=== PATIENT | female | born 1955 | race Caucasian/White ===

== ENCOUNTER → 2017-11-18 | Outpatient (CLI) | payer MEDICARE ==
[~2017-11-18] MED LIST: ALBU18HF7 IH; ASPI-1005 PO; ASPI-1012 PO; ATOR10TA69 PO; CALC-190 PO; CALC3.8S EN; CITA40TA6 PO; CLOP75TA14 PO; FOLIC ACID PO; HYDR-309 PO; L.AC1CAP6 PO; MULT-1203 PO; NITR0.4T SL; TRAM50TA4 PO; VIT B12 PO; VITAMIN B1 PO
== END | disposition home or self-care (01) ==
LOC: EDSTATUS 08:00 → SHCH 08:04
PROVIDERS: ATTEND Internal Medicine Cardiovascular Disease
DX: I73.9 Peripheral vascular disease, unspecified (principal); I70.8 Atherosclerosis of other arteries
CPT/HCPCS: 93925; 93978

== ENCOUNTER 2017-12-08 09:36 | Day surgery (SDC) | payer MEDICARE ==
[2017-12-06 12:50] VITALS: BP 140/58
[2017-12-06 13:06] LABS: BASOPHILS % (AUTO) 1.3 % (0.0-5.0); EOSINOPHILS % (AUTO) 1.1 % (0.0-8.0); LYMPHOCYTES % (AUTO) 33.1 % (21.0-51.0); MEAN CORPUSCULAR HGB CONC 33.5 g/dL (32.0-36.0); MEAN CORPUSCULAR VOLUME 89.6 fL (79-99); MONOCYTES % (AUTO) 10.3 % (3.0-13.0); NEUTROPHILS % (AUTO) 54.2 % (40.0-77.0); PLATELET COUNT (AUTO) 323 K/uL (130-400); RED BLOOD CELL COUNT(AUTO) 4.46 MIL/uL (4.00-5.50); RED CELL DISTRIBUTION WIDTH 13.9 % (11.0-15.5)
[2017-12-06 13:10] LABS: APPEARANCE,URINE Clear (CLEAR); BILIRUBIN,URINE Negative (NEGATIVE); COLOR,URINE Yellow (YELLOW); GLUCOSE, URINE (UA) Negative (NEGATIVE); KETONES,URINE Negative (NEGATIVE); LEUKOCYTE ESTERASE ,URINE Negative (NEGATIVE); NITRATE,URINE Negative (NEGATIVE); OCCULT BLOOD,URINE Trace (NEGATIVE); PROTEIN,URINE Negative (NEGATIVE); UROBILINOGEN,URINE 0.2 mg/dL (0.2-1.0)
[2017-12-06 13:20] LABS: CREATININE 0.7 mg/dL (0.5-1.5); POTASSIUM 4.5 mmol/L (3.5-5.1)
[2017-12-06 13:22] LABS: INR 1.01 (0.85-1.15); PARTIAL THROMBOPLASTIN TIME 28.1 SEC (26.3-35.5); PROTHROMBIN TIME 10.6 SEC (9.6-11.6)
[2017-12-06 14:01] LABS: BACTERIA,URINE Rare /HPF (None Seen); RBC,URINE 0-1 /HPF (0-1); SQUAMOUS EPITHELIAL CELL,UR Rare /HPF (0-2); WBC,URINE None Seen /HPF (0-1)
[2017-12-08] VITALS (13 sets, daily range): BP systolic 55–133; BP diastolic 55–67
[~2017-12-08] VITALS: Ht 165.1 cm; Wt 52.4 kg
[~2017-12-08 09:36] MED LIST changes: -ASPI-1012 PO; -HYDR-309 PO; +MONTELUKAST SODIUM 10 MG TAB PO ONE
[2017-12-08] MEDS ORDERED: MONTELUKAST SODIUM 10 MG TAB PO SCH (10:48)
[2017-12-08] MEDS ORDERED: SODIUM CHLORIDE 0.9% 1000ML 1,000 ML IV ONE (11:25)
[2017-12-08] MEDS ORDERED: METHYLPREDNISOLONE SOD SUCC 125MG/2ML VIAL IVP SCH (11:48)
[2017-12-08] MEDS ORDERED: ACETAMINOPHEN 325 MG TAB PO PRN (12:00)
[2017-12-08] MEDS ORDERED: SODIUM CHLORIDE 0.9% 500ML 500 ML IV SCH (12:00)
[2017-12-08] MEDS ORDERED: NITROGLYCERIN 5 MG/ML 10 ML VIAL IV ONE (13:39)
[2017-12-08] MEDS ORDERED: LIDOCAINE HCL 2% 20ML ONE (13:40)
[2017-12-08] MEDS ORDERED: HEPARIN SODIUM 1000UNIT/ML 10ML VIAL ONE (13:40)
[2017-12-08] MEDS ORDERED: ISOVUE-300 100 ML VIAL IV ONE (13:40)
[2017-12-08] MEDS ORDERED: MIDAZOLAM HCL 1 MG/ML 2ML VIAL ONE (14:04)
[2017-12-08] MEDS ORDERED: FENTANYL CITRATE PF 50 MCG/1 ML 2ML VIAL ONE (14:05)
[2017-12-08] MEDS ORDERED: SODIUM CHLORIDE 0.9% 1000ML 1,000 ML IV SCH (14:41)
[2017-12-08] MEDS ORDERED: GLUCAGON 1MG KIT 1 MG ML IM PRN (14:45)
[2017-12-08] MEDS ORDERED: DEXTROSE 50%-WATER 50 ML DISP.SYRIN IV PRN (14:45)
[2017-12-08] MEDS ORDERED: HYDRALAZINE HCL 20 MG/ML VIAL IV PRN (14:45)
[2017-12-08] MEDS ORDERED: ATROPINE SULFATE 0.1 MG/ML 10 ML SYG IVP ONE (14:48)
== END 2017-12-08 18:15 | disposition home or self-care (01) ==
LOC: DAH 09:36
PROVIDERS: ATTEND Internal Medicine Cardiovascular Disease
DX: I73.9 Peripheral vascular disease, unspecified (principal); E78.5 Hyperlipidemia, unspecified; Z98.890 Other specified postprocedural states; R00.0 Tachycardia, unspecified; J44.9 Chronic obstructive pulmonary disease, unspecified; Z87.891 Personal history of nicotine dependence; I20.9 Angina pectoris, unspecified; Z79.899 Other long term (current) drug therapy; Z79.01 Long term (current) use of anticoagulants
CPT/HCPCS: 36246; 36415; 71045; 75716; 80048; 81001; 85025; 85610; 85730; 93005; A4606; C1769; C1894 ×2; J1644; J2250; J2930; J3010; J3490 ×2; J7030; Q9967; 99152; 99153; J0461

== ENCOUNTER 2017-12-13 09:00 | Inpatient (IN) | payer MEDICARE ==
[~2017-12-13] VITALS: Ht 165.1 cm; Wt 53.8 kg
[~2017-12-13 09:00] MED LIST changes: -MONTELUKAST SODIUM 10 MG TAB PO ONE
[2017-12-14 11:42] VITALS: BP 104/54
[2017-12-14 11:42] LABS: BASOPHILS % (AUTO) 0.6 % (0.0-5.0); EOSINOPHILS % (AUTO) 1.4 % (0.0-8.0); LYMPHOCYTES % (AUTO) 28.3 % (21.0-51.0); MEAN CORPUSCULAR HEMOGLOBIN 30.3 pg (27.0-33.0); MEAN CORPUSCULAR HGB CONC 33.8 g/dL (32.0-36.0); MEAN CORPUSCULAR VOLUME 89.7 fL (79-99); MONOCYTES % (AUTO) 13.1 % (3.0-13.0); NEUTROPHILS % (AUTO) 56.6 % (40.0-77.0); PLATELET COUNT (AUTO) 303 K/uL (130-400); RED BLOOD CELL COUNT(AUTO) 4.12 MIL/uL (4.00-5.50); RED CELL DISTRIBUTION WIDTH 14.4 % (11.0-15.5); WHITE BLOOD COUNT (AUTO) 12.6 K/uL (4.8-10.8)
[2017-12-14 11:48] LABS: CREATININE 0.6 mg/dL (0.5-1.5); POTASSIUM 3.8 mmol/L (3.5-5.1)
[2017-12-14 11:49] LABS: HEMOGLOBIN A1C 6.9 % (4.0-6.0)
[2017-12-14 12:16] LABS: INR 0.97 (0.85-1.15); PARTIAL THROMBOPLASTIN TIME 26.4 SEC (26.3-35.5)
[2017-12-14 12:31] LABS: PLATELET FUNCTION ANALYSIS EPI 95 SEC (55-192)
[2017-12-14 12:33] LABS: PLATELET COUNT (AUTO) 303 K/uL (130-400)
[2017-12-15] VITALS (20 sets, daily range): BP systolic 97–140; BP diastolic 60–72
[2017-12-15] MEDS ORDERED: WATER FOR INJECTION,STERILE 20 ML VIAL IJ SCH (05:00)
[2017-12-15] MEDS: CEFUROXIME SODIUM 1.5 GM VIAL IVP SCH ×2 (14:00→15:00)
[2017-12-15] MEDS ORDERED: LACTATED RINGERS 1000ML 1,000 ML IV ONE (14:08)
[2017-12-15] MEDS ORDERED: OCTYL 2-CYANOACRYLATE 1 EACH TP ONE (14:16)
[2017-12-15] MEDS ORDERED: BACITRACIN 50,000 UNIT VIAL ONE (14:17)
[2017-12-15] MEDS ORDERED: NEOMY SULF/POLYMYXIN B SULFATE 1 ML AMPUL IR ONE (14:17)
[2017-12-15] MEDS ORDERED: MIDAZOLAM HCL 1 MG/ML 2ML VIAL ONE (15:03)
[2017-12-15] MEDS ORDERED: FENTANYL CITRATE PF 50 MCG/1 ML 2ML VIAL ONE (15:03)
[2017-12-15] MEDS ORDERED: THROMBIN-JMI 5000 UNIT/VIAL TP ONE (15:24)
[2017-12-15] MEDS ORDERED: NEOSTIGMINE METHYLSULFATE 1MG/ML IV ONE (16:49)
[2017-12-15] MEDS ORDERED: ACETAMINOPHEN 325 MG TAB PO PRN (17:30)
[2017-12-15] MEDS ORDERED: MAGNESIUM HYDROXIDE 30 ML/UDCUP PO PRN (17:30)
[2017-12-15] MEDS: ENOXAPARIN SODIUM 40 MG/0.4 ML SYRINGE SQ SCH (20:37)
[2017-12-15] MEDS: HYDROCODONE/ACETAMINOPHEN 5/325 MG TAB PO PRN (20:49)
[2017-12-15] MEDS: TRAMADOL HCL 50 MG TABLET PO PRN (23:05)
[2017-12-16] MEDS: CEFUROXIME SODIUM 1.5 GM VIAL IVP SCH ×2 (01:16→14:28)
[2017-12-16] MEDS ORDERED: CEFUROXIME 1.5GM+NS 100ML 100 ML IV SCH (01:30)
[2017-12-16] MEDS: HYDROCODONE/ACETAMINOPHEN 5/325 MG TAB PO PRN ×3 (02:08→20:39)
[2017-12-16 03:13] VITALS: BP 106/58
[2017-12-16 04:50] LABS: ALBUMIN 2.6 g/dL (3.5-5.0); BILIRUBIN,TOTAL 0.5 mg/dL (0.2-1.0); CREATININE 0.5 mg/dL (0.5-1.5); POTASSIUM 3.5 mmol/L (3.5-5.1); TOTAL PROTEIN, SERUM 6.1 g/dL (6.0-8.3)
[2017-12-16 08:00] VITALS: BP 95/52
[2017-12-16] MEDS: CLOPIDOGREL BISULFATE 75 MG TAB PO SCH (08:24)
[2017-12-16] MEDS: FAMOTIDINE 20MG TAB 20 MG TAB PO SCH ×2 (08:24→20:38)
[2017-12-16] MEDS ORDERED: VIT B12 PO SCH (09:00)
[2017-12-16] MEDS ORDERED: CALCITONIN 3.7 ML AEROSOL NS SCH (09:00)
[2017-12-16] MEDS ORDERED: POTASSIUM CHLORIDE 10% ELIXIR 20 MEQ/15 ML UDCUP PO PRN (09:45)
[2017-12-16] MEDS ORDERED: POTASSIUM CHLORIDE 20MEQ/100ML 100 ML IV PRN (09:45)
[2017-12-16] MEDS ORDERED: LIDOCAINE HCL-MPF 1% 2ML VIAL IVP PRN (09:45)
[2017-12-16] MEDS: POTASSIUM CHLORIDE 20 MEQ ERTAB PO PRN ×2 (10:00→12:00)
[2017-12-16] MEDS: LACTOBACILLUS RHAMNOSUS GG 1 EACH CAP.SPRINK PO SCH (10:06)
[2017-12-16] MEDS: CITALOPRAM 20 MG TABLET PO SCH (10:06)
[2017-12-16] MEDS: MULTIVITAMIN TABLET PO SCH (10:06)
[2017-12-16] MEDS: ASPIRIN 81MG TAB.CHEW PO SCH (10:06)
[2017-12-16] MEDS: ATORVASTATIN CALCIUM 10 MG TABLET PO SCH (10:06)
[2017-12-16] MEDS: FOLIC ACID 1 MG TABLET PO SCH (10:06)
[2017-12-16] MEDS: CALCIUM 600 + VITAMIN D 400 TABLET PO SCH (10:06)
[2017-12-16] MEDS: TRAMADOL HCL 50 MG TABLET PO PRN (10:44)
[2017-12-16 11:22] VITALS: BP 135/73
[2017-12-16] MEDS: ENOXAPARIN SODIUM 40 MG/0.4 ML SYRINGE SQ SCH (15:53)
[2017-12-16 16:00] VITALS: BP 94/49
[2017-12-16 19:20] VITALS: BP 105/58
[2017-12-16 23:32] VITALS: BP 97/53
[2017-12-17] MEDS: TRAMADOL HCL 50 MG TABLET PO PRN (00:56)
[2017-12-17] MEDS: CEFUROXIME SODIUM 1.5 GM VIAL IVP SCH (02:28)
[2017-12-17 04:10] VITALS: BP 97/51
[2017-12-17] MEDS: HYDROCODONE/ACETAMINOPHEN 5/325 MG TAB PO PRN (04:49)
[2017-12-17 05:23] LABS: HEMATOCRIT 31.7 % (36-48); MEAN CORPUSCULAR HEMOGLOBIN 31.4 pg (27.0-33.0); MEAN CORPUSCULAR HGB CONC 35.5 g/dL (32.0-36.0); MEAN CORPUSCULAR VOLUME 88.5 fL (79-99); PLATELET COUNT (AUTO) 229 K/uL (130-400); RED BLOOD CELL COUNT(AUTO) 3.58 MIL/uL (4.00-5.50); RED CELL DISTRIBUTION WIDTH 14.2 % (11.0-15.5); WHITE BLOOD COUNT (AUTO) 14.6 K/uL (4.8-10.8)
[2017-12-17 05:30] LABS: CREATININE 0.6 mg/dL (0.5-1.5)
[2017-12-17] MEDS ORDERED: POTASSIUM CHLORIDE 10 MEQ/TAB.SA PO ONE ×4 (05:41→07:00)
[2017-12-17 07:13] VITALS: BP 92/46
[2017-12-17] MEDS ORDERED: TRAM50TA4 PO (08:19)
[2017-12-17] MEDS: ATORVASTATIN CALCIUM 10 MG TABLET PO SCH (09:15)
[2017-12-17] MEDS: CALCIUM 600 + VITAMIN D 400 TABLET PO SCH (09:15)
[2017-12-17] MEDS: LACTOBACILLUS RHAMNOSUS GG 1 EACH CAP.SPRINK PO SCH (09:15)
[2017-12-17] MEDS: MULTIVITAMIN TABLET PO SCH (09:15)
[2017-12-17] MEDS: ASPIRIN 81MG TAB.CHEW PO SCH (09:15)
[2017-12-17] MEDS: FOLIC ACID 1 MG TABLET PO SCH (09:15)
[2017-12-17] MEDS: CLOPIDOGREL BISULFATE 75 MG TAB PO SCH (09:16)
[2017-12-17] MEDS: CITALOPRAM 20 MG TABLET PO SCH (09:16)
[2017-12-17] MEDS: FAMOTIDINE 20MG TAB 20 MG TAB PO SCH (09:16)
[2017-12-17 11:35] VITALS: BP 97/53
[2017-12-17 14:28] LABS: APPEARANCE,URINE Clear (CLEAR); BILIRUBIN,URINE Negative (NEGATIVE); COLOR,URINE Yellow (YELLOW); GLUCOSE, URINE (UA) Negative (NEGATIVE); KETONES,URINE Negative (NEGATIVE); LEUKOCYTE ESTERASE ,URINE Negative (NEGATIVE); NITRATE,URINE Negative (NEGATIVE); OCCULT BLOOD,URINE Negative (NEGATIVE); PH,URINE 5.5 (5.0-8.0); PROTEIN,URINE Negative (NEGATIVE); UROBILINOGEN,URINE 0.2 mg/dL (0.2-1.0)
== END 2017-12-17 16:44 | disposition home or self-care (01) | DRG 253 ==
LOC: 2DH 12-15 01:00 → UNDOADMIN 12-15 01:00 → DAHIP 12-15 01:00 → 2DH 12-15 17:16 → DAHIP 12-15 17:16
PROVIDERS: ADMIT Internal Medicine; ATTEND Internal Medicine
PROC: 04UL0JZ Supplement Left Femoral Artery with Synthetic Substitute, Open Approach (ICD-10-PCS; 2017-12-15)
PROC: 30233N1 Transfusion of Nonautologous Red Blood Cells into Peripheral Vein, Percutaneous Approach (ICD-10-PCS; 2017-12-15)
PROC: 04CK0ZZ Extirpation of Matter from Right Femoral Artery, Open Approach (ICD-10-PCS; principal; 2017-12-15 15:00)
DX: I73.9 Peripheral vascular disease, unspecified (principal); E44.1 Mild protein-calorie malnutrition; E78.5 Hyperlipidemia, unspecified; F17.210 Nicotine dependence, cigarettes, uncomplicated; J44.9 Chronic obstructive pulmonary disease, unspecified; Z91.041 Radiographic dye allergy status; Z79.02 Long term (current) use of antithrombotics/antiplatelets; Z79.82 Long term (current) use of aspirin; Z82.49 Family history of ischemic heart disease and other diseases of the circulatory system
CPT/HCPCS: 36415; 71046; 80048; 80053; 81003; 83036; 85025; 85027; 85576; 85610; 85730; 86850; 86900; 86901; 86922; 88304; 93005; 94010; A4218; A4344; C1757; J0697; J1650; J2250; J2710; J3010; J3490; J7030; J7040; J7120; P9016

== ENCOUNTER 2018-01-31 16:00 | Inpatient (IN) | payer MEDICARE ==
[~2018-01-31] VITALS: Ht 165.1 cm; Wt 53.1 kg
[2018-01-31 15:29] LABS: APPEARANCE,URINE Clear (CLEAR); BILIRUBIN,URINE Negative (NEGATIVE); COLOR,URINE Yellow (YELLOW); GLUCOSE, URINE (UA) Negative (NEGATIVE); KETONES,URINE Negative (NEGATIVE); LEUKOCYTE ESTERASE ,URINE Negative (NEGATIVE); NITRATE,URINE Negative (NEGATIVE); OCCULT BLOOD,URINE Negative (NEGATIVE); PROTEIN,URINE Negative (NEGATIVE); UROBILINOGEN,URINE 0.2 mg/dL (0.2-1.0)
[2018-01-31 15:31] LABS: BASOPHILS % (AUTO) 1.1 % (0.0-5.0); EOSINOPHILS % (AUTO) 3.8 % (0.0-8.0); HEMATOCRIT 36.2 % (36-48); LYMPHOCYTES % (AUTO) 39.3 % (21.0-51.0); MEAN CORPUSCULAR HEMOGLOBIN 28.3 pg (27.0-33.0); MEAN CORPUSCULAR HGB CONC 33.3 g/dL (32.0-36.0); MEAN CORPUSCULAR VOLUME 85.1 fL (79-99); MONOCYTES % (AUTO) 9.6 % (3.0-13.0); NEUTROPHILS % (AUTO) 46.2 % (40.0-77.0); PLATELET COUNT (AUTO) 380 K/uL (130-400); RED BLOOD CELL COUNT(AUTO) 4.26 MIL/uL (4.00-5.50); WHITE BLOOD COUNT (AUTO) 9.6 K/uL (4.8-10.8)
[2018-01-31 15:38] LABS: CREATININE 0.6 mg/dL (0.5-1.5); POTASSIUM 4.6 mmol/L (3.5-5.1)
[2018-01-31 15:42] LABS: INR 0.99 (0.85-1.15); PARTIAL THROMBOPLASTIN TIME 27.5 SEC (26.3-35.5); PROTHROMBIN TIME 10.4 SEC (9.6-11.6)
[2018-01-31 16:03] VITALS: BP 92/54
[2018-02-01] VITALS (23 sets, daily range): BP systolic 92–136; BP diastolic 55–81
[2018-02-01] MEDS: CEFAZOLIN SODIUM 1 GM VIAL IVP SCH ×3 (06:00→18:03)
[2018-02-01] MEDS ORDERED: LACTATED RINGERS 1000ML 1,000 ML IV ONE (08:02)
[2018-02-01] MEDS ORDERED: CELECOXIB 200 MG CAP ONE (08:20)
[2018-02-01] MEDS ORDERED: ACETAMINOPHEN EXTRA STRENGTH 500 MG TABLET ONE (08:20)
[2018-02-01] MEDS ORDERED: KETOROLAC TROMETHAMINE 15MG/ML ONE (08:20)
[2018-02-01] MEDS ORDERED: OXYCODONE HCL 10 MG TAB.SR.12H PO ONE (08:20)
[2018-02-01] MEDS ORDERED: ONDANSETRON HCL 4 MG/2 ML VIAL ONE (08:47)
[2018-02-01] MEDS ORDERED: LIDOCAINE PF 2% 5ML ABBOJECT ONE (08:47)
[2018-02-01] MEDS ORDERED: DEXAMETHASONE SOD PHOSPHATE 10MG/ML 1ML VIAL ONE (08:47)
[2018-02-01] MEDS ORDERED: GLYCOPYRROLATE 0.2 MG/ML 5 ML VIAL ONE (08:47)
[2018-02-01] MEDS ORDERED: FENTANYL CITRATE PF 50 MCG/1 ML 2ML VIAL ONE (08:48)
[2018-02-01] MEDS ORDERED: MIDAZOLAM HCL 1 MG/ML 2ML VIAL ONE (08:48)
[2018-02-01] MEDS ORDERED: PROPOFOL 10 MG/ML 20ML VIAL IV ONE (08:48)
[2018-02-01] MEDS ORDERED: ROPIVACAINE 0.5% 5MG/ML 30ML IJ ONE (08:55)
[2018-02-01] MEDS ORDERED: BUPIVACAINE/PF 0.25% 30ML VIAL IJ ONE (08:57)
[2018-02-01] MEDS ORDERED: CEFAZOLIN SODIUM 1 GM VIAL ONE (08:57)
[2018-02-01] MEDS ORDERED: EPINEPHRINE 1 MG/ML AMPULE ONE (08:57)
[2018-02-01] MEDS ORDERED: POTASSIUM CHLORIDE 20 MEQ ERTAB PO PRN (12:00)
[2018-02-01] MEDS ORDERED: POTASSIUM CHLORIDE 10% ELIXIR 20 MEQ/15 ML UDCUP PO PRN (12:00)
[2018-02-01] MEDS ORDERED: DiphenhydrAMINE HCL 50 MG/ML VIAL IVP PRN (12:00)
[2018-02-01] MEDS ORDERED: CALCIUM CARBONATE 500 MG TABLET PO PRN (12:00)
[2018-02-01] MEDS ORDERED: OXYCODONE HCL 5 MG TAB PO PRN (12:00)
[2018-02-01] MEDS ORDERED: LIDOCAINE HCL-MPF 1% 2ML VIAL IVP PRN (12:00)
[2018-02-01] MEDS ORDERED: FERROUS FUMARATE 324 MG TABLET PO PRN (12:00)
[2018-02-01] MEDS ORDERED: POTASSIUM CHLORIDE 20MEQ/100ML 100 ML IV PRN (12:00)
[2018-02-01] MEDS ORDERED: ONDANSETRON HCL MDV 20ML 2 MG/ML VIAL IVP PRN (12:00)
[2018-02-01] MEDS ORDERED: TEMAZEPAM 15 MG CAPSULE PO PRN (12:00)
[2018-02-01] MEDS ORDERED: TRAMADOL HCL 50 MG TABLET PO PRN ×2 (12:00→18:00)
[2018-02-01] MEDS: ACETAMINOPHEN EXTRA STRENGTH 500 MG TABLET PO SCH ×2 (12:00→20:28)
[2018-02-01] MEDS ORDERED: MEPERIDINE-PF 50 MG/ML SYG ONE ×2 (12:44→13:01)
[2018-02-01] MEDS: SODIUM CHLORIDE 0.9% 1000ML 1,000 ML IV SCH ×2 (14:18→22:16)
[2018-02-01] MEDS: KETOROLAC TROMETHAMINE 15MG/ML IV PRN ×2 (14:18→20:33)
[2018-02-01] MEDS ORDERED: CEFAZOLIN 2GM / 50 ML 50 ML IV SCH (17:00)
[2018-02-01] MEDS ORDERED: NITROGLYCERIN 0.4 MG SL TAB SL SCH (18:00)
[2018-02-01] MEDS: OXYCODONE HCL 5 MG TAB PO PRN (18:04)
[2018-02-01] MEDS ORDERED: ALBUTEROL SULFATE 0.083% 2.5 MG/3 ML INH IH PRN (18:15)
[2018-02-01] MEDS: ASPIRIN 325 MG TABLET PO SCH (20:26)
[2018-02-01] MEDS: PREGABALIN 25 MG CAP PO SCH (20:27)
[2018-02-01] MEDS: CELECOXIB 200 MG CAP PO SCH (20:27)
[2018-02-01] MEDS: FAMOTIDINE 20MG TAB 20 MG TAB PO SCH (20:27)
[2018-02-02 00:06] VITALS: BP 95/58
[2018-02-02] MEDS: CEFAZOLIN SODIUM 1 GM VIAL IVP SCH (00:17)
[2018-02-02] MEDS: OXYCODONE HCL 5 MG TAB PO PRN ×5 (00:19→23:49)
[2018-02-02] MEDS: SODIUM CHLORIDE 0.9% 1000ML 1,000 ML IV SCH (03:51)
[2018-02-02 04:06] VITALS: BP 95/56
[2018-02-02] MEDS: ACETAMINOPHEN EXTRA STRENGTH 500 MG TABLET PO SCH ×3 (04:17→21:05)
[2018-02-02 05:28] LABS: HEMATOCRIT 25.6 % (36-48); MEAN CORPUSCULAR HEMOGLOBIN 28.6 pg (27.0-33.0); MEAN CORPUSCULAR HGB CONC 33.8 g/dL (32.0-36.0); MEAN CORPUSCULAR VOLUME 84.8 fL (79-99); PLATELET COUNT (AUTO) 254 K/uL (130-400); RED BLOOD CELL COUNT(AUTO) 3.02 MIL/uL (4.00-5.50); RED CELL DISTRIBUTION WIDTH 15.3 % (11.0-15.5); WHITE BLOOD COUNT (AUTO) 10.9 K/uL (4.8-10.8)
[2018-02-02 05:48] LABS: CREATININE 0.7 mg/dL (0.5-1.5); POTASSIUM 3.7 mmol/L (3.5-5.1)
[2018-02-02 07:29] VITALS: BP 90/58
[2018-02-02] MEDS: CALCITONIN 3.7 ML AEROSOL NS SCH (08:48)
[2018-02-02] MEDS: ASPIRIN 325 MG TABLET PO SCH ×2 (08:49→21:05)
[2018-02-02] MEDS: PREGABALIN 25 MG CAP PO SCH ×2 (08:49→21:05)
[2018-02-02] MEDS: POLYETHYLENE GLYCOL 3350 17 GM POWD.PACK PO SCH (08:49)
[2018-02-02] MEDS: ATORVASTATIN CALCIUM 10 MG TABLET PO SCH (08:50)
[2018-02-02] MEDS: CALCIUM 600 + VITAMIN D 400 TABLET PO SCH (08:50)
[2018-02-02] MEDS: CLOPIDOGREL BISULFATE 75 MG TAB PO SCH (08:50)
[2018-02-02] MEDS: CELECOXIB 200 MG CAP PO SCH ×2 (08:50→21:05)
[2018-02-02] MEDS: CITALOPRAM 20 MG TABLET PO SCH (08:50)
[2018-02-02] MEDS: FAMOTIDINE 20MG TAB 20 MG TAB PO SCH ×2 (08:50→21:05)
[2018-02-02 16:17] VITALS: BP 98/55
[2018-02-02 20:03] VITALS: BP 92/54
[2018-02-02] MEDS: KETOROLAC TROMETHAMINE 15MG/ML IV PRN (21:04)
[2018-02-03 00:03] VITALS: BP 100/52
[2018-02-03 04:03] VITALS: BP 107/63
[2018-02-03] MEDS: ACETAMINOPHEN EXTRA STRENGTH 500 MG TABLET PO SCH ×2 (04:25→12:52)
[2018-02-03] MEDS: OXYCODONE HCL 5 MG TAB PO PRN ×3 (04:27→12:54)
[2018-02-03 07:57] VITALS: BP 99/58
[2018-02-03] MEDS: FAMOTIDINE 20MG TAB 20 MG TAB PO SCH (09:13)
[2018-02-03] MEDS: ATORVASTATIN CALCIUM 10 MG TABLET PO SCH (09:13)
[2018-02-03] MEDS: CITALOPRAM 20 MG TABLET PO SCH (09:13)
[2018-02-03] MEDS: POLYETHYLENE GLYCOL 3350 17 GM POWD.PACK PO SCH (09:13)
[2018-02-03] MEDS: CLOPIDOGREL BISULFATE 75 MG TAB PO SCH (09:13)
[2018-02-03] MEDS: CALCIUM 600 + VITAMIN D 400 TABLET PO SCH (09:13)
[2018-02-03] MEDS: ASPIRIN 325 MG TABLET PO SCH (09:13)
[2018-02-03] MEDS: PREGABALIN 25 MG CAP PO SCH (09:13)
[2018-02-03] MEDS: CELECOXIB 200 MG CAP PO SCH (09:13)
[2018-02-03] MEDS: CALCITONIN 3.7 ML AEROSOL NS SCH (09:17)
[2018-02-03 09:32] VITALS: BP 99/58
[2018-02-03 11:29] VITALS: BP 96/56
[2018-02-03] MEDS ORDERED: ASPI-1012 PO (11:49)
[2018-02-03] MEDS ORDERED: HYDR-309 PO (11:49)
[2018-02-04] MEDS ORDERED: BISACODYL 10 MG SUPP.RECT RC PRN (12:00)
== END 2018-02-03 15:10 | disposition home health service (06) | DRG 470 ==
LOC: EDSTATUS 16:00 → DAHIP 02-01 06:38 → 4AH 02-01 13:44
PROVIDERS: ADMIT Orthopaedic Surgery; ATTEND Orthopaedic Surgery
PROC: 0SRC0JZ Replacement of Right Knee Joint with Synthetic Substitute, Open Approach (ICD-10-PCS; principal; 2018-02-01 09:40)
DX: M17.11 Unilateral primary osteoarthritis, right knee (principal); E78.5 Hyperlipidemia, unspecified; J44.9 Chronic obstructive pulmonary disease, unspecified
CPT/HCPCS: 36415; 80048; 81003; 85025; 85027; 85610; 85730; 88305; 88311; 94640; 94664; 96374; A4218; J0171; J0690; J1100; J1885; J2001; J2175; J2250; J2405; J2704; J2795; J3010; J3490; J7030; J7120

== ENCOUNTER → 2018-05-23 | Outpatient (CLI) | payer MEDICARE ==
[~2018-05-23] MED LIST changes: -ASPI-1005 PO; +ASPI-1012 PO; +HYDR-309 PO; +LIDOCAINE/PRILOCAINE CREAM 5GM TUBE TP ONE
[2018-05-23 15:56] VITALS: BP 109/65
== END | disposition home or self-care (01) ==
LOC: WHH 13:00
PROVIDERS: ATTEND Family Medicine
DX: T81.89XD Other complications of procedures, not elsewhere classified, subsequent encounter (principal); I25.10 Atherosclerotic heart disease of native coronary artery without angina pectoris; J44.9 Chronic obstructive pulmonary disease, unspecified; I73.9 Peripheral vascular disease, unspecified; E78.5 Hyperlipidemia, unspecified; M81.0 Age-related osteoporosis without current pathological fracture; G89.29 Other chronic pain; M17.11 Unilateral primary osteoarthritis, right knee; I11.0 Hypertensive heart disease with heart failure; I50.9 Heart failure, unspecified; F17.210 Nicotine dependence, cigarettes, uncomplicated; Y83.8 Other surgical procedures as the cause of abnormal reaction of the patient, or of later complication, without mention of misadventure at the time of the procedure
CPT/HCPCS: 11042; A6213; J3490

== ENCOUNTER → 2018-06-06 | Outpatient (CLI) | payer MEDICARE ==
[2018-06-06 14:17] VITALS: BP 114/64
== END | disposition home or self-care (01) ==
LOC: WHH 13:00
PROVIDERS: ATTEND Family Medicine
DX: T81.89XD Other complications of procedures, not elsewhere classified, subsequent encounter (principal); I25.10 Atherosclerotic heart disease of native coronary artery without angina pectoris; J44.9 Chronic obstructive pulmonary disease, unspecified; I73.9 Peripheral vascular disease, unspecified; E78.5 Hyperlipidemia, unspecified; M81.0 Age-related osteoporosis without current pathological fracture; G89.29 Other chronic pain; M17.11 Unilateral primary osteoarthritis, right knee; I11.0 Hypertensive heart disease with heart failure; I50.9 Heart failure, unspecified; F17.210 Nicotine dependence, cigarettes, uncomplicated; Y83.8 Other surgical procedures as the cause of abnormal reaction of the patient, or of later complication, without mention of misadventure at the time of the procedure
CPT/HCPCS: A6213; G0463; J3490

== ENCOUNTER 2018-06-13 13:00 | Outpatient (CLI) | payer MEDICARE ==
[~2018-06-13 13:00] MED LIST changes: -HYDR-309 PO; +HYDR-4457 PO; -LIDOCAINE/PRILOCAINE CREAM 5GM TUBE TP ONE
[2018-06-13 15:54] VITALS: BP 105/63
== END 2018-06-13 16:03 | disposition home or self-care (01) ==
LOC: WHH 13:00
PROVIDERS: ATTEND Family Medicine
DX: T81.89XD Other complications of procedures, not elsewhere classified, subsequent encounter (principal); I25.10 Atherosclerotic heart disease of native coronary artery without angina pectoris; J44.9 Chronic obstructive pulmonary disease, unspecified; I73.9 Peripheral vascular disease, unspecified; E78.5 Hyperlipidemia, unspecified; M81.0 Age-related osteoporosis without current pathological fracture; G89.29 Other chronic pain; M17.11 Unilateral primary osteoarthritis, right knee; I11.0 Hypertensive heart disease with heart failure; I50.9 Heart failure, unspecified; F17.210 Nicotine dependence, cigarettes, uncomplicated; Y83.8 Other surgical procedures as the cause of abnormal reaction of the patient, or of later complication, without mention of misadventure at the time of the procedure
CPT/HCPCS: G0463

== ENCOUNTER → 2019-10-25 | Outpatient (CLI) | payer OTHER, MEDICARE | END | disposition home or self-care (01) | LOC: SHCH 14:23 | PROVIDERS: ATTEND Internal Medicine Cardiovascular Disease | DX: R00.2 Palpitations (principal) | CPT/HCPCS: 93306; 93356 ==

== ENCOUNTER → 2019-12-20 | Outpatient (CLI) | payer OTHER, MEDICARE | END | disposition home or self-care (01) | LOC: SHCH 08:14 | PROVIDERS: ATTEND Internal Medicine Cardiovascular Disease | DX: I87.2 Venous insufficiency (chronic) (peripheral) (principal) | CPT/HCPCS: 93970 ==

== ENCOUNTER → 2022-04-22 | Outpatient (CLI) | payer OTHER, MEDICARE ==
[~2022-04-22] MED LIST changes: +CITA-108 PO; -CITA40TA6 PO
== END | disposition home or self-care (01) ==
LOC: RAH 08:03
PROVIDERS: ATTEND Internal Medicine Cardiovascular Disease
DX: I73.9 Peripheral vascular disease, unspecified (principal); I87.2 Venous insufficiency (chronic) (peripheral)
CPT/HCPCS: 76775

== ENCOUNTER → 2022-06-15 | Outpatient (CLI) | payer OTHER, MEDICARE ==
[~2022-06-15] MED LIST changes: +IOHEXOL 350 MG/ML 100ML INFUS..BTL IV ONE
== END | disposition home or self-care (01) ==
LOC: RAH 10:01
PROVIDERS: ATTEND Internal Medicine Cardiovascular Disease
DX: I70.0 Atherosclerosis of aorta (principal); I73.9 Peripheral vascular disease, unspecified
CPT/HCPCS: 75635; Q9967 ×2

== ENCOUNTER 2022-07-12 08:36 | Day surgery (SDC) | payer OTHER, MEDICARE ==
[2022-07-09 15:52] LABS: BASOPHILS % (AUTO) 1.4 % (0.0-5.0); EOSINOPHILS % (AUTO) 4.3 % (0.0-8.0); HEMATOCRIT 37.2 % (36-48); LYMPHOCYTES % (AUTO) 40.2 % (21.0-51.0); MEAN CORPUSCULAR HEMOGLOBIN 29.9 pg (27.0-33.0); MEAN CORPUSCULAR HGB CONC 32.8 g/dL (32.0-36.0); MEAN CORPUSCULAR VOLUME 91.2 fL (79-99); MONOCYTES % (AUTO) 8.4 % (3.0-13.0); NEUTROPHILS % (AUTO) 45.4 % (40.0-77.0); PLATELET COUNT (AUTO) 293 K/uL (130-400); RED BLOOD CELL COUNT(AUTO) 4.08 MIL/uL (4.00-5.50); RED CELL DISTRIBUTION WIDTH 13.9 % (11.0-15.5)
[2022-07-09 15:53] LABS: APPEARANCE,URINE CLEAR (CLEAR); BILIRUBIN,URINE NEGATIVE (NEGATIVE); COLOR,URINE LIGHT-YELLOW (YELLOW); GLUCOSE, URINE (UA) NEGATIVE (NEGATIVE); KETONES,URINE NEGATIVE (NEGATIVE); LEUKOCYTE ESTERASE ,URINE NEGATIVE Leu/uL (NEGATIVE); NITRATE,URINE NEGATIVE (NEGATIVE); OCCULT BLOOD,URINE NEGATIVE (NEGATIVE); PROTEIN,URINE NEGATIVE (NEGATIVE); UROBILINOGEN,URINE 0.2 mg/dL (0.2-1.0)
[2022-07-09 16:04] LABS: CREATININE 0.6 mg/dL (0.5-1.5); INR 0.98 (0.85-1.15); POTASSIUM 4.4 mmol/L (3.5-5.1); PROTHROMBIN TIME 10.7 SEC (9.6-11.6)
[2022-07-09 16:23] LABS: B-TYPE NATRIURETIC PEPTIDE 83 pg/mL (0-100)
[2022-07-09 16:40] VITALS: BP 113/49
[2022-07-12] VITALS (7 sets, daily range): BP systolic 97–112; BP diastolic 48–56
[~2022-07-12] VITALS: Ht 165.1 cm; Wt 52.0 kg
[~2022-07-12 08:36] MED LIST changes: +0.9% NACL 500ML IV.SOLN 500 ML IV SCH; +AEC81 PO; +ALEN70TA80 PO; -ASPI-1012 PO; -ATOR10TA69 PO; +BRIM15OS OU; -CALC-190 PO; -CALC3.8S EN; -CITA-108 PO; -CLOP75TA14 PO; +DiphenhydrAMINE HCL 50 MG/ML VIAL IVP SCH; +ESCI20TA38 PO; -FOLIC ACID PO; -HYDR-4457 PO; -IOHEXOL 350 MG/ML 100ML INFUS..BTL IV ONE; +ISOS30TA92 PO; -L.AC1CAP6 PO; -MULT-1203 PO; -NITR0.4T SL; +RIVA2.5T PO; +ROSU10TA28 PO; +SOLU-MEDROL 125MG VIAL IVP SCH; -TRAM50TA4 PO; -VIT B12 PO; -VITAMIN B1 PO
[2022-07-12] MEDS ORDERED: 0.9%NACL 1000ML 1,000 ML IV ONE (09:25)
[2022-07-12] MEDS ORDERED: LIDOCAINE HCL 1% 20 ML VIAL ONE (10:19)
[2022-07-12] MEDS ORDERED: MIDAZOLAM HCL 1 MG/ML 2ML VIAL ONE (10:19)
[2022-07-12] MEDS ORDERED: NITROGLYCERIN 50MG VIAL ONE (10:19)
[2022-07-12] MEDS ORDERED: FENTANYL CITRATE PF 50 MCG/1 ML 2ML VIAL ONE (10:19)
[2022-07-12] MEDS ORDERED: IODIXANOL 320 MG/ML 100 ML VIAL ONE (10:19)
[2022-07-12] MEDS ORDERED: HEPARIN 10,000 UNIT/10ML (1,000 UNIT/ML) VIAL ONE (10:19)
[2022-07-12] MEDS ORDERED: DEXTROSE 50%-WATER 50 ML DISP.SYRIN IV PRN (12:00)
[2022-07-12] MEDS ORDERED: GLUCAGON 1MG KIT 1 MG ML IM PRN (12:00)
== END 2022-07-12 13:35 | disposition home or self-care (01) ==
LOC: DAH 08:36
PROVIDERS: ATTEND Internal Medicine Cardiovascular Disease
DX: I70.212 Atherosclerosis of native arteries of extremities with intermittent claudication, left leg (principal); I25.118 Atherosclerotic heart disease of native coronary artery with other forms of angina pectoris; J44.9 Chronic obstructive pulmonary disease, unspecified; E78.5 Hyperlipidemia, unspecified; I87.2 Venous insufficiency (chronic) (peripheral); F17.210 Nicotine dependence, cigarettes, uncomplicated; Z79.01 Long term (current) use of anticoagulants; Z79.899 Other long term (current) drug therapy; Z88.3 Allergy status to other anti-infective agents; Z79.02 Long term (current) use of antithrombotics/antiplatelets; Z98.890 Other specified postprocedural states; Z82.49 Family history of ischemic heart disease and other diseases of the circulatory system; Z79.82 Long term (current) use of aspirin
CPT/HCPCS: 80048; 83880; 85025; 85610; 85730; 81003; 36415; 93005; 75625; 36200; 82948; C1894 ×2; C1769; J1200; J3010; J7030; J2930; J2250; J1644; J3490; Q9967; A4215; A4222; A4221; A4663; A4216; A4606; A4223 ×3; 75716; 99156; 99157

== ENCOUNTER 2022-07-29 06:05 | Day surgery (SDC) | payer OTHER, MEDICARE ==
[2022-07-26 14:31] LABS: BASOPHILS % (AUTO) 1.1 % (0.0-5.0); EOSINOPHILS % (AUTO) 3.8 % (0.0-8.0); HEMATOCRIT 35.3 % (36-48); LYMPHOCYTES % (AUTO) 36.9 % (21.0-51.0); MEAN CORPUSCULAR HEMOGLOBIN 30.1 pg (27.0-33.0); MEAN CORPUSCULAR HGB CONC 33.1 g/dL (32.0-36.0); MEAN CORPUSCULAR VOLUME 90.7 fL (79-99); MONOCYTES % (AUTO) 8.8 % (3.0-13.0); PLATELET COUNT (AUTO) 280 K/uL (130-400); RED BLOOD CELL COUNT(AUTO) 3.89 MIL/uL (4.00-5.50); RED CELL DISTRIBUTION WIDTH 13.4 % (11.0-15.5); WHITE BLOOD COUNT (AUTO) 10.9 K/uL (4.8-10.8)
[2022-07-26 14:37] LABS: INR 0.97 (0.85-1.15); PROTHROMBIN TIME 10.6 SEC (9.6-11.6)
[2022-07-26 14:38] LABS: PARTIAL THROMBOPLASTIN TIME 30.3 SEC (26.3-35.5)
[2022-07-26 14:41] LABS: CREATININE 0.6 mg/dL (0.5-1.5); POTASSIUM 3.9 mmol/L (3.5-5.1)
[2022-07-26 15:07] LABS: APPEARANCE,URINE CLEAR (CLEAR); BILIRUBIN,URINE NEGATIVE (NEGATIVE); COLOR,URINE YELLOW (YELLOW); GLUCOSE, URINE (UA) NEGATIVE (NEGATIVE); KETONES,URINE NEGATIVE (NEGATIVE); LEUKOCYTE ESTERASE ,URINE NEGATIVE Leu/uL (NEGATIVE); NITRATE,URINE NEGATIVE (NEGATIVE); OCCULT BLOOD,URINE NEGATIVE (NEGATIVE); PROTEIN,URINE NEGATIVE (NEGATIVE); UROBILINOGEN,URINE 0.2 mg/dL (0.2-1.0)
[2022-07-26 15:08] LABS: RBC,URINE 0-1 /HPF (0-1); SQUAMOUS EPITHELIAL CELL,UR RARE /HPF (0-2)
[2022-07-26 15:18] LABS: B-TYPE NATRIURETIC PEPTIDE 48 pg/mL (0-100)
[2022-07-28 12:11] VITALS: BP 86/44
[~2022-07-29] VITALS: Ht 165.1 cm; Wt 52.0 kg
[2022-07-29] VITALS (11 sets, daily range): BP systolic 108–126; BP diastolic 49–60
[~2022-07-29 06:05] MED LIST changes: -0.9% NACL 500ML IV.SOLN 500 ML IV SCH; -DiphenhydrAMINE HCL 50 MG/ML VIAL IVP SCH; -SOLU-MEDROL 125MG VIAL IVP SCH
[2022-07-29] MEDS ORDERED: SOLU-MEDROL 125MG VIAL ONE (06:32)
[2022-07-29] MEDS ORDERED: 0.9%NACL 1000ML 1,000 ML IV ONE (06:32)
[2022-07-29] MEDS ORDERED: DiphenhydrAMINE HCL 50 MG/ML VIAL ONE (06:32)
[2022-07-29] MEDS ORDERED: LIDOCAINE HCL 1% 20 ML VIAL ONE (07:07)
[2022-07-29] MEDS ORDERED: NITROGLYCERIN 50MG VIAL ONE (07:08)
[2022-07-29] MEDS ORDERED: HEPARIN 10,000 UNIT/10ML (1,000 UNIT/ML) VIAL ONE (07:08)
[2022-07-29] MEDS ORDERED: IODIXANOL 320 MG/ML 100 ML VIAL ONE (07:08)
[2022-07-29] MEDS ORDERED: NICARDIPINE 25MG INJ IV ONE (07:08)
[2022-07-29] MEDS ORDERED: MIDAZOLAM HCL 1 MG/ML 2ML VIAL ONE ×2 (07:33→07:55)
[2022-07-29] MEDS ORDERED: FENTANYL CITRATE PF 50 MCG/1 ML 2ML VIAL ONE (07:34)
[2022-07-29] MEDS ORDERED: CLOPIDOGREL 300MG TAB ONE (09:37)
[2022-07-29] MEDS ORDERED: ASPIRIN 81MG CHEW TAB ONE (09:37)
[2022-07-29] MEDS ORDERED: NITROGLYCERIN 0.4 MG SL TAB SL PRN (10:00)
[2022-07-29] MEDS ORDERED: DEXTROSE 50%-WATER 50 ML DISP.SYRIN IV PRN (10:00)
[2022-07-29] MEDS ORDERED: 0.9%NACL 1000ML 1,000 ML IV SCH (10:00)
[2022-07-29] MEDS ORDERED: METOPROLOL TARTRATE 1 MG/ML 5ML VIAL IV PRN (10:00)
[2022-07-29] MEDS ORDERED: GLUCAGON 1MG KIT 1 MG ML IM PRN (10:00)
[2022-07-29] MEDS ORDERED: ATROPINE 1MG SYG IVP ONE (12:05)
== END 2022-07-29 15:10 | disposition home or self-care (01) ==
LOC: DAH 06:05
PROVIDERS: ATTEND Internal Medicine Cardiovascular Disease
DX: I70.212 Atherosclerosis of native arteries of extremities with intermittent claudication, left leg (principal); I70.92 Chronic total occlusion of artery of the extremities; J44.9 Chronic obstructive pulmonary disease, unspecified; E78.5 Hyperlipidemia, unspecified; F17.210 Nicotine dependence, cigarettes, uncomplicated; Z79.01 Long term (current) use of anticoagulants; Z79.899 Other long term (current) drug therapy; Z79.82 Long term (current) use of aspirin; Z98.890 Other specified postprocedural states; Z82.49 Family history of ischemic heart disease and other diseases of the circulatory system; Z95.820 Peripheral vascular angioplasty status with implants and grafts
CPT/HCPCS: 80048; 83880; 85025; 85610; 85730; 81001; 36415; 93005; 75710; 82948 ×2; C9766; C1725; C1769 ×4; C1894 ×3; C1893; C1724; C2623; J1200; J3010; J7030; J2930; J3490 ×2; J1644 ×3; J2250 ×2; Q9967; A4215; A4222; A4221; A4663; A4216; A4606; A4223 ×3; 75716; 99156; 99157; J0461

== ENCOUNTER → 2022-11-11 | Outpatient (CLI) | payer OTHER, MEDICARE | END | disposition home or self-care (01) | LOC: SHCH 09:18 | PROVIDERS: ATTEND Internal Medicine Cardiovascular Disease | DX: I73.9 Peripheral vascular disease, unspecified (principal) | CPT/HCPCS: 93925 ==

== ENCOUNTER → 2023-02-23 | Outpatient (CLI) | payer OTHER, MEDICARE | END | disposition home or self-care (01) | LOC: SHCH 08:50 | PROVIDERS: ATTEND Internal Medicine Cardiovascular Disease | DX: I70.203 Unspecified atherosclerosis of native arteries of extremities, bilateral legs (principal) | CPT/HCPCS: 93925 ==

== ENCOUNTER → 2023-05-19 | Outpatient (CLI) | payer OTHER, MEDICARE ==
[~2023-05-19] MED LIST changes: +CYCL5TAB PO; +LIDOP TP; +TRAM-355 PO
== END | disposition home or self-care (01) ==
LOC: SHCH 09:19
PROVIDERS: ATTEND Internal Medicine Cardiovascular Disease
DX: T82.898A Other specified complication of vascular prosthetic devices, implants and grafts, initial encounter (principal); I73.9 Peripheral vascular disease, unspecified; Z95.828 Presence of other vascular implants and grafts; Y93.89 Activity, other specified; Y92.89 Other specified places as the place of occurrence of the external cause
CPT/HCPCS: 93925

== ENCOUNTER 2023-05-22 16:36 | Emergency (ER) | payer OTHER, MEDICARE ==
[~2023-05-22] VITALS: Ht 165.1 cm; Wt 51.7 kg
[~2023-05-22 16:36] MED LIST changes: -CYCL5TAB PO; -LIDOP TP; -TRAM-355 PO
[2023-05-22 16:38] VITALS: BP 131/83; PULSE 62; RESP 16
[2023-05-22] MEDS ORDERED: KETOROLAC 60 MG VIAL (30MG/ML) IM ONE (18:00)
[2023-05-22] MEDS ORDERED: DIAZEPAM 5 MG TABLET PO ONE (18:00)
[2023-05-22] MEDS ORDERED: TRAM-355 PO (18:37)
[2023-05-22] MEDS ORDERED: LIDOP TP (18:41)
[2023-05-22] MEDS ORDERED: CYCL5TAB PO (18:45)
== END 2023-05-22 19:28 | disposition home or self-care (01) ==
LOC: EDH 16:36
DX: M54.50 Low back pain, unspecified (principal); E11.9 Type 2 diabetes mellitus without complications; Z88.8 Allergy status to other drugs, medicaments and biological substances; Z91.013 Allergy to seafood
CPT/HCPCS: 99283; 96372; J1885

== ENCOUNTER → 2023-06-03 | Outpatient (CLI) | payer OTHER, MEDICARE ==
[~2023-06-03] MED LIST changes: +CYCL5TAB PO; +IOHEXOL 350 MG/ML 100ML INFUS..BTL IV ONE; +IOHEXOL-350 50ML VIAL IV ONE; +LIDOP TP
== END | disposition home or self-care (01) ==
LOC: RAH 09:18
PROVIDERS: ATTEND Internal Medicine Cardiovascular Disease
DX: I74.5 Embolism and thrombosis of iliac artery (principal); I70.0 Atherosclerosis of aorta; I73.9 Peripheral vascular disease, unspecified
CPT/HCPCS: 75635; Q9967 ×2

== ENCOUNTER → 2023-08-25 | Outpatient (CLI) | payer OTHER, MEDICARE ==
[~2023-08-25] MED LIST changes: -IOHEXOL 350 MG/ML 100ML INFUS..BTL IV ONE; -IOHEXOL-350 50ML VIAL IV ONE
== END | disposition home or self-care (01) ==
LOC: SHCH 09:47
PROVIDERS: ATTEND Internal Medicine Cardiovascular Disease
DX: I35.8 Other nonrheumatic aortic valve disorders (principal); I25.10 Atherosclerotic heart disease of native coronary artery without angina pectoris; I11.9 Hypertensive heart disease without heart failure; E11.9 Type 2 diabetes mellitus without complications
CPT/HCPCS: 93306

== ENCOUNTER 2023-10-12 10:22 | Day surgery (SDC) | payer OTHER, MEDICARE ==
[2023-10-10 13:58] LABS: BASOPHILS # (AUTO) 0.07 K/uL (0.00-0.20); BASOPHILS % (AUTO) 0.7 % (0.0-5.0); EOSINOPHILS # (AUTO) 0.23 K/uL (0.00-0.70); EOSINOPHILS % (AUTO) 2.3 % (0.0-8.0); HEMATOCRIT 40.3 % (36-48); IMMATURE GRANULOCYTE ABSOLUTE 0.04 K/uL (0-1); LYMPHOCYTES # (AUTO) 3.5 K/uL (1.0-4.8); LYMPHOCYTES % (AUTO) 35.5 % (21.0-51.0); MEAN CORPUSCULAR HEMOGLOBIN 29.4 pg (27.0-33.0); MEAN CORPUSCULAR HGB CONC 31.8 g/dL (32.0-36.0); MEAN CORPUSCULAR VOLUME 92.4 fL (79-99); MONOCYTES # (AUTO) 0.8 K/uL (0.1-1.0); MONOCYTES % (AUTO) 7.7 % (3.0-13.0); NEUTROPHILS # (AUTO) 5.3 K/uL (1.8-7.7); NEUTROPHILS % (AUTO) 53.4 % (40.0-77.0); PLATELET COUNT (AUTO) 222 K/uL (130-400); RED BLOOD CELL COUNT(AUTO) 4.36 MIL/uL (4.00-5.50); RED CELL DISTRIBUTION WIDTH 14.6 % (11.0-15.5); WHITE BLOOD COUNT (AUTO) 9.9 K/uL (4.8-10.8)
[2023-10-10 14:03] LABS: CREATININE 0.7 mg/dL (0.5-1.5); POTASSIUM 5.5 mmol/L (3.5-5.1)
[2023-10-10 14:05] LABS: INR 1.02 (0.85-1.15); PROTHROMBIN TIME 11.8 SEC (9.6-11.6)
[2023-10-10 14:06] LABS: PARTIAL THROMBOPLASTIN TIME 32.5 SEC (26.3-35.5)
[2023-10-10 14:16] VITALS: BP 140/66; PULSE 63; RESP 16
[2023-10-10 14:16] LABS: APPEARANCE,URINE CLEAR (CLEAR); BILIRUBIN,URINE NEGATIVE (NEGATIVE); COLOR,URINE LIGHT-YELLOW (YELLOW); GLUCOSE, URINE (UA) NEGATIVE (NEGATIVE); KETONES,URINE NEGATIVE (NEGATIVE); LEUKOCYTE ESTERASE ,URINE NEGATIVE Leu/uL (NEGATIVE); NITRATE,URINE NEGATIVE (NEGATIVE); PH,URINE 5.5 (5.0-8.0); PROTEIN,URINE NEGATIVE (NEGATIVE); UROBILINOGEN,URINE 0.2 mg/dL (0.2-1.0)
[2023-10-10 14:25] LABS: ADD UA MICROSCOPIC NO
[2023-10-10 14:26] LABS: B-TYPE NATRIURETIC PEPTIDE 96 pg/mL (0-100)
[~2023-10-12] VITALS: Ht 165.1 cm; Wt 51.7 kg
[2023-10-12] VITALS (10 sets, daily range): BP systolic 102–143; BP diastolic 43–59; PULSE 57–75; RESP 10–16
[~2023-10-12 10:22] MED LIST changes: -CYCL5TAB PO; +HEPARIN 10,000 UNIT/10ML (1,000 UNIT/ML) VIAL ONE; +IODIXANOL 320 MG/ML 100 ML VIAL ONE; +LIDOCAINE HCL 400MG/20ML VIAL ONE; -LIDOP TP; +NITROGLYCERIN 50MG VIAL ONE
[2023-10-12] MEDS: 0.9%NACL 1000ML 1,000 ML IV ONE (10:36)
[2023-10-12 10:39] LABS: CREATININE 0.8 mg/dL (0.5-1.5); POTASSIUM 4.2 mmol/L (3.5-5.1)
[2023-10-12] MEDS ORDERED: SOLU-MEDROL 125MG VIAL ONE (11:00)
[2023-10-12] MEDS ORDERED: NICARDIPINE 25MG INJ IV ONE (11:08)
[2023-10-12] MEDS ORDERED: FENTANYL CITRATE PF 50 MCG/1 ML 2ML VIAL ONE (11:09)
[2023-10-12] MEDS ORDERED: MIDAZOLAM HCL 1 MG/ML 2ML VIAL ONE ×2 (11:10→12:18)
[2023-10-12] MEDS ORDERED: HEPARIN 10,000 UNIT/10ML (1,000 UNIT/ML) VIAL ONE (12:09)
[2023-10-12] MEDS ORDERED: DEXTROSE 50%-WATER 50 ML DISP.SYRIN IV PRN (13:30)
[2023-10-12] MEDS ORDERED: NITROGLYCERIN 0.4 MG SL TAB SL PRN (13:30)
[2023-10-12] MEDS ORDERED: CLOPIDOGREL 300MG TAB ONE (13:30)
[2023-10-12] MEDS ORDERED: GLUCAGON 1MG KIT 1 MG ML IM PRN (13:30)
[2023-10-13] MEDS ORDERED: CLOPIDOGREL 75MG TAB PO SCH (09:00)
== END 2023-10-12 16:35 | disposition home or self-care (01) ==
LOC: DAH 10:22
PROVIDERS: ATTEND Internal Medicine Cardiovascular Disease
DX: I70.212 Atherosclerosis of native arteries of extremities with intermittent claudication, left leg (principal); E78.5 Hyperlipidemia, unspecified; I25.10 Atherosclerotic heart disease of native coronary artery without angina pectoris; J44.9 Chronic obstructive pulmonary disease, unspecified; F17.210 Nicotine dependence, cigarettes, uncomplicated; I25.2 Old myocardial infarction; Z91.013 Allergy to seafood; Z79.01 Long term (current) use of anticoagulants; Z79.899 Other long term (current) drug therapy; Z98.890 Other specified postprocedural states; Z82.49 Family history of ischemic heart disease and other diseases of the circulatory system; Z88.3 Allergy status to other anti-infective agents; Z79.02 Long term (current) use of antithrombotics/antiplatelets
CPT/HCPCS: 80048 ×2; 83880; 85025; 85610; 85730; 81003; 36415 ×2; 93005; 75716; 37252; 37253 ×2; C9765; C1725 ×2; C1887 ×2; C1769 ×4; C1894; A4649; C1753; C1876; J3010; J3490 ×3; J7030; J2930; J1644 ×4; J2250 ×2; Q9967; A4215; A6251; A4222; A6260; A4221; A4663; A4216; A6206; A4606; A4223 ×3; 75774; 99156; 99157